=== PATIENT | female | born 2005 | race Caucasian/White ===

== ENCOUNTER 2024-01-08 12:15 | Outpatient (CLI) | payer BC, SELFPAY ==
[2024-01-10 17:19] LABS: QuantiFERON-TB Gold Plus Negative (Negative)
== END 2024-01-08 23:59 | disposition home or self-care (01) ==
LOC: LAB 12:19
PROVIDERS: PCP Family Medicine; Visit Provider Family Medicine
DX: Z00.00 Encounter for general adult medical examination without abnormal findings (principal)
CPT/HCPCS: 36415; 86480

== ENCOUNTER 2025-02-09 09:58 | Outpatient (CLI) | payer OTHER, SELFPAY ==
[2025-02-09 10:12] LABS: COC Drug Screen Collection Only
== END 2025-02-09 23:59 | disposition home or self-care (01) ==
LOC: LAB 10:00
PROVIDERS: PCP Nurse Practitioner Family
DX: Z02.83 Encounter for blood-alcohol and blood-drug test (principal)

== ENCOUNTER 2025-02-19 09:43 | Outpatient (CLI) | payer OTHER, SELFPAY | END 2025-02-19 23:59 | disposition home or self-care (01) | LOC: LAB 09:43 | PROVIDERS: PCP Nurse Practitioner Family; Visit Provider Family Medicine | DX: Z11.1 Encounter for screening for respiratory tuberculosis (principal) | CPT/HCPCS: 36415; 86480; 86706 ==